=== PATIENT | female | born 1995 | race Hispanic/Latino ===

== ENCOUNTER 2021-06-24 18:13 | Observation (INO) | payer OTHER ==
[2021-06-24 20:58] LABS: Hemoglobin 13.7 g/dL (12.0-15.5); Mean Corpuscular HGB CONC 34.7 g/dL (32.0-36.0); Mean Corpuscular Hemoglobin 31.1 pg (27.0-33.0); Mean Corpuscular Volume 89.8 fl (81.6-98.3); Mean Platelet Volume 10.4 fl (7.4-10.4); Platelet Count 220 10x3/uL (150-450); RBC Distribution Width 12.3 % (11.5-14.5); White Blood Cell (WBC) Count 9.1 10x3/uL (3.5-10.5)
[2021-06-24 21:12] LABS: ALT (SGPT) 20 U/L (8-55); AST (SGOT) 14 U/L (5-34); Albumin 4.1 g/dL (3.5-5.0); Alkaline Phosphatase 60 U/L (40-110); Anion Gap 12 mmol/L (10-20); BUN (Urea Nitrogen) 11 mg/dL (7.0-18.7); Bilirubin, Total 0.3 mg/dL (0.2-1.2); Calc. Creatinine Clearance 0 mL/min (70-130); Calcium 9.2 mg/dL (7.8-10.44); Carbon Dioxide 23 mmol/L (22-29); Chloride 105 mmol/L (98-107); Globulin 3.3 g/dL (2.4-3.5); Glucose 83 mg/dL (70-105); Lipase 47 U/L (8-78); Potassium 3.6 mmol/L (3.5-5.1); Protein, Total 7.4 g/dL (6.0-8.3); Sodium 136 mmol/L (136-145)
[2021-06-24 21:21] LABS: MDiff Complete? YES
[2021-06-24 21:24] LABS: Band 6 % (5-11); Eosinophils 3 % (0-10); Lymphocytes 24 % (21-51); Monocytes 4 % (0-10); Neutrophil 54 % (42-75); Reactive Lymphocytes 7 % (0-10)
[2021-06-24 21:25] LABS: Platelet Morphology Comment Appears Adequate
[2021-06-24 21:26] LABS: RBC Morphology Normal
[2021-06-24] MEDS: Lactated Ringer's 1,000 ML IV SCH (22:15)
[2021-06-24] MEDS ORDERED: Lactated Ringer's 1,000 ML IV SCH (23:00)
[2021-06-24] MEDS ORDERED: FLU VACC QS2021-22(6MOS UP)/PF 60 MCG/0.5 ML SYRINGE IM ONE (23:45)
[2021-06-25 00:07] LABS: Bilirubin Neg (Negative); Blood, Urine 25 (Negative); Clarity Slightly Cloudy (Clear); Glucose, Urine (Dipstick) Normal (Negative); Ketone, Urine 150 mg/dL (Negative); Leukocyte 25 (Negative); Nitrite Positive (Negative); Protein, Urine (Dipstick) Negative (Neg-Trace); Specific Gravity, Urine 1.015 (1.002-1.036); Urobilinogen Normal mg/dL (Less than 2)
[2021-06-25 00:14] LABS: Bacteria/HPF 4+ HPF (None Seen); RBC/HPF 0-3 HPF (0-3)
[2021-06-25] MEDS: Metoclopramide HCl 10 MG/2 ML VIAL IVP SCH ×3 (01:34→11:41)
[2021-06-25] MEDS: diphenhydrAMINE 50 MG/ML VIAL IVP SCH ×3 (01:35→11:40)
[2021-06-25] MEDS: Lactated Ringer's 1,000 ML IV SCH (06:41)
[2021-06-25] MEDS ORDERED: Multivitamins, Adult 10 ML, Folic Acid 1 MG, Thiamine HCl 100 MG in Dextrose 5 %-0.45 %... IV SCH ×2 (08:45)
[2021-06-25] MEDS ORDERED: Folic Acid 1 MG, Multivitamins, Adult 10 ML in Dextrose 5 %-0.45 % NaCl 1,000 ML IV SCH ×2 (10:00→14:47)
[2021-06-25] MEDS ORDERED: Thiamine HCl 200 MG/2 ML VIAL SLOW IVP SCH (10:00)
[2021-06-25] MEDS ORDERED: Dextrose 5%-Lactated Ringers 1,000 ML IV SCH (10:45)
[2021-06-25 13:53] LABS: Bilirubin Neg (Negative); Blood, Urine Negative (Negative); Clarity Clear (Clear); Glucose, Urine (Dipstick) Normal (Negative); Ketone, Urine Negative (Negative); Leukocyte 25 (Negative); Nitrite Negative (Negative); Protein, Urine (Dipstick) Negative (Neg-Trace); Urobilinogen Normal mg/dL (Less than 2)
[2021-06-25 14:02] LABS: Bacteria/HPF 2+ HPF (None Seen); RBC/HPF 0-3 HPF (0-3); Squamous Epithelial 0-3 HPF (0-3)
[2021-06-25 16:55] LABS: SARS-CoV-2 PCR by NAA Not Detected (NotDetected)
[2021-06-25] MEDS ORDERED: diphenhydrAMINE 25 MG CAP PO SCH (18:00)
[2021-06-25] MEDS ORDERED: Metoclopramide HCl 10 MG TAB PO SCH (18:00)
[2021-06-25 20:34] VITALS: BP 106/57; TEMP 98.8
== END 2021-06-25 20:03 | disposition home or self-care (01) ==
LOC: CSHPED 18:13
PROVIDERS: ADMIT Obstetrics & Gynecology; ATTEND Obstetrics & Gynecology
DX: O21.0 Mild hyperemesis gravidarum (principal); O99.891 Other specified diseases and conditions complicating pregnancy; R30.0 Dysuria; Z3A.10 10 weeks gestation of pregnancy; Z20.822 Contact with and (suspected) exposure to COVID-19
CPT/HCPCS: 36415; 76705; 76856; 80053; 81001; 82150; 83690; 83735; 84100; 84443; 85025; 87086; 96375; 96376; G0378; J1200; J2765; J3411; J3415; J7042; J7120; U0003; U0005